=== PATIENT | female | born 1980 | race Hispanic/Latino ===

== ENCOUNTER 2023-07-15 | Outpatient (CLI) | payer BC | END 2023-07-15 08:23 | disposition home or self-care (01) | DX: I83.012 Varicose veins of right lower extremity with ulcer of calf (principal); L97.219 Non-pressure chronic ulcer of right calf with unspecified severity; I83.025 Varicose veins of left lower extremity with ulcer other part of foot; L97.522 Non-pressure chronic ulcer of other part of left foot with fat layer exposed; L97.312 Non-pressure chronic ulcer of right ankle with fat layer exposed; L08.9 Local infection of the skin and subcutaneous tissue, unspecified ==

== ENCOUNTER 2023-07-29 13:23 | Outpatient (CLI) | payer BC | END 2023-07-29 13:24 | disposition home or self-care (01) | LOC: CSHWCC 13:23 | PROVIDERS: ATTEND Nurse Practitioner Family | DX: I83.012 Varicose veins of right lower extremity with ulcer of calf (principal); L97.219 Non-pressure chronic ulcer of right calf with unspecified severity; I83.025 Varicose veins of left lower extremity with ulcer other part of foot; L97.312 Non-pressure chronic ulcer of right ankle with fat layer exposed; L97.522 Non-pressure chronic ulcer of other part of left foot with fat layer exposed; L08.9 Local infection of the skin and subcutaneous tissue, unspecified | CPT/HCPCS: 97597 ==

== ENCOUNTER 2023-08-05 09:28 | Outpatient (CLI) | payer BC | END 2023-08-05 09:29 | disposition home or self-care (01) | LOC: CSHWCC 09:28 | PROVIDERS: ATTEND Nurse Practitioner Family | DX: L97.312 Non-pressure chronic ulcer of right ankle with fat layer exposed (principal); I83.012 Varicose veins of right lower extremity with ulcer of calf; I83.025 Varicose veins of left lower extremity with ulcer other part of foot | CPT/HCPCS: 97597 ==